=== PATIENT | male | born 1945 | race Caucasian/White ===

== ENCOUNTER 2018-05-18 21:07 | Emergency (ER) | payer OTHER ==
[~2018-05-18] VITALS: Ht 185.4 cm; Wt 89.7 kg
[~2018-05-18 21:07] MED LIST: ASCORBIC ACID500 M3 PO; CIPROFLOXACIN500 M1; NOHOMEMEDS; NORCO 5/3251 TABLET PO; VITAMIN D31000 UNI2 PO
[2018-05-18 21:49] LABS: BASOPHIL (%) 0.3 % (0-1); EOSINOPHIL (%) 0.3 % (0-5); HEMATOCRIT 41.8 % (38.0-50.0); HEMOGLOBIN 14.7 G/DL (12.5-16.6); IMMATURE GRANULOCYTE (%) 0.3 % (0.0-0.7); LYMPHOCYTE (%) 9.8 % (15-42); LYMPHOCYTE COUNT 1.2 K/uL (1.0-2.8); MCHC 35.2 G/DL (30.0-36.0); MCV 93.7 FL (86-99); MONOCYTE (%) 5.4 % (3-12); MONOCYTE COUNT 0.7 K/uL (0-0.8); NEUTROPHIL (%) 83.9 % (45-76); NEUTROPHIL COUNT 10.2 K/uL (1.8-6.4); PLATELET COUNT 228 K/uL (156-360); RBC DIS.WIDTH-SD 41.8 % (39-53); RED BLOOD COUNT 4.46 M/uL (4.00-5.50); WHITE BLOOD COUNT 12.2 K/uL (4.1-10.2)
[2018-05-18 21:57] LABS: CHLORIDE 101 mEq/L (99-109); POTASSIUM 3.8 mEq/L (3.7-5.4); SODIUM 137 mEq/L (136-147)
[2018-05-18 21:59] LABS: GLUCOSE 120 mg/dL (70-99)
[2018-05-18 22:03] LABS: CREATININE 1.1 mg/dL (0.6-1.3); GFR ESTIMATE (CALCULATED) > 59 mL/min/ (58.99-99999)
[2018-05-18 22:04] LABS: UREA NITROGEN (BUN) 21 mg/dL (9-23)
[2018-05-18 22:12] LABS: TROP-I INTERPRETATION NEGATIVE; TROPONIN-I < 0.01 ng/mL (0.0-0.30)
[2018-05-18 23:46] LABS: APPEARANCE CLEAR ((CLEAR)); BILIRUBIN NEGATIVE; BLOOD NEGATIVE; COLOR STRAW ((YELLOW)); GLUCOSE (STRIP) NEGATIVE; KETONES 5; LEUKOCYTES NEGATIVE; NITRITE NEGATIVE; PROTEIN (STRIP) NEGATIVE; SPECIFIC GRAVITY 1.011 (1.000-1.030); UCUL ADDED? NO; UROBILINOGEN 0.2 MG/DL (0.2-1.0)
[2018-05-19 02:30] VITALS: BP 115/69
== END 2018-05-19 02:30 | disposition home or self-care (01) ==
LOC: EME → EDBD 21:07 → EME 05-19 02:30
PROVIDERS: Emergency Medicine
DX: R55 Syncope and collapse (principal); R20.2 Paresthesia of skin; E86.0 Dehydration; Z88.0 Allergy status to penicillin; Z87.891 Personal history of nicotine dependence
CPT/HCPCS: 70450; 80048; 81003; 82948; 84484; 85025; 93005; 99281; 99285; J7030